=== PATIENT | female | born 2000 ===

== ENCOUNTER 2024-09-08 03:30 | Inpatient (IN) | payer OTHER ==
[2024-09-08] MEDS: LACTATED RINGERS SOLUTION 1,000 ML/1,000 ML INFUS.BAG IV SCH (03:45)
[2024-09-08] MEDS ORDERED: FENTANYL/BUPIVACAINE/NS/PF - PCEA - 50 ML DISP.SYRIN EP ONE (04:02)
[2024-09-08] MEDS: FENTANYL/BUPIVACAINE/NS/PF - PCEA - 50 ML DISP.SYRIN EP SCH (04:25)
[2024-09-08] MEDS ORDERED: NALOXONE HCL 0.4 MG/ML VIAL IVPUSH PRN (04:28)
[2024-09-08 04:39] LABS: ABSOLUTE IMMATURE GRANULOCYTES 0.19 x10^3/uL (0.0-0.031); BASOPHILS # 0.09 x10^3/uL (0.01-0.08); EOSINOPHILS # 0.33 x10^3/uL (0.04-0.36); HEMATOCRIT 32.9 % (34.1-44.9); HEMOGLOBIN 10.3 g/dL (11.2-15.7); MCHC 31.3 g/dl (32.2-35.5); MONOCYTE # 1.24 x10^3/uL (0.24-0.86); MONOCYTE % 7.4 % (4.7-12.5); PLATELET COUNT 210 x10^3/uL (182-369); RDW 14.6 % (12.1-16.5)
[2024-09-08 04:51] LABS: INR 0.97 (0.83-1.09); PROTHROMBIN TIME (PATIENT) 10.6 SEC (9.7-13.0)
[2024-09-08] MEDS: OXYTOCIN 20 UNITS in 0.9% NS 20 UNIT/1,000 ML INFUS.BAG IV SCH (04:52)
[2024-09-08 04:53] LABS: ACTIVATED PTT 23.5 SECONDS (25.2-36.5)
[2024-09-08 04:56] LABS: POTASSIUM 4.1 mmol/L (3.5-5.1)
[2024-09-08 04:59] LABS: BLOOD UREA NITROGEN 8.6 mg/dL (7-18)
[2024-09-08 05:03] LABS: CREATININE 0.6 mg/dL (0.55-1.3)
[2024-09-08] MEDS ORDERED: BENZOCAINE 28 GM HEMORRHOIDAL OINTMENT TP PRN (05:10)
[2024-09-08] MEDS ORDERED: WITCH HAZEL 50% (TUCKS) 40 PAD/JAR PAD TP PRN (05:10)
[2024-09-08] MEDS ORDERED: METHYLERGONOVINE MALEATE 0.2 MG/1 ML AMP IM PRN (05:10)
[2024-09-08] MEDS ORDERED: oxyCODONE HCL 5 MG TABLET PO PRN (05:10)
[2024-09-08] MEDS ORDERED: IBUPROFEN 600 MG TABLET (FP) PO PRN (05:10)
[2024-09-08] MEDS ORDERED: BISACODYL 10 MG SUPP.RECT RC PRN (05:10)
[2024-09-08] MEDS ORDERED: BENZOCAINE 20% 57 GM BOTTLE TP PRN (05:10)
[2024-09-08 05:38] LABS: CORD BASE EXCESS -1.4 mmol/L (0-2); CORD HCO3 23.1 mmHg (20-29); CORD PCO2 38.7 mmHg (30-78); CORD PCO2 45.3 mmHg (30-78); CORD pH 7.305 (7.14-7.44); CORD pH 7.394 (7.14-7.44)
[2024-09-08 05:50] VITALS: BMI 33.8
[2024-09-08] MEDS ORDERED: OXYTOCIN 20 UNITS in 0.9% NS 20 UNIT/1,000 ML INFUS.BAG IV ONE (08:33)
[2024-09-08] MEDS: PRENATAL VITAMINS W/ FOLIC ACID TABLET (FP) PO SCH (09:05)
[2024-09-08] MEDS: ACETAMINOPHEN 325 MG TABLET (FP) PO PRN (09:05)
[2024-09-08] MEDS: FERROUS SO4 325 MG TABLET (FP) PO SCH (09:05)
[2024-09-09 07:09] LABS: BASOPHILS # 0.05 x10^3/uL (0.01-0.08); EOSINOPHIL % 2.6 % (0.7-5.8); EOSINOPHILS # 0.33 x10^3/uL (0.04-0.36); HEMOGLOBIN 9.3 g/dL (11.2-15.7); MEAN CELL VOLUME 77.7 fl (79.4-94.8); MEAN PLT VOLUME 11.6 fl (9.4-12.3); MONOCYTE # 0.82 x10^3/uL (0.24-0.86); MONOCYTE % 6.5 % (4.7-12.5); PLATELET COUNT 167 x10^3/uL (182-369); RDW 14.9 % (12.1-16.5)
[2024-09-09] MEDS ORDERED: SENNOSIDES/DOCUSATE COMBO (SENNA PLUS) TABLET (UD) PO PRN (22:00)
[2024-09-10 10:36] VITALS: BP 111/62; PULSE 50; RESP 17; TEMP 98
== END 2024-09-10 11:35 | disposition home or self-care (01) | DRG 560 ==
LOC: JLDR 03:30 → J3W 08:40
PROVIDERS: ADMIT Obstetrics & Gynecology; ATTEND Obstetrics & Gynecology
PROC: 10E0XZZ Delivery of Products of Conception, External Approach (ICD-10-PCS; principal; 2024-09-08)
DX: O48.0 Post-term pregnancy (principal); Z3A.40 40 weeks gestation of pregnancy; Z37.0 Single live birth
CPT/HCPCS: 36415; 36600; 59409; 80048; 82803; 85025; 85610; 85730; 86780; 86850; 86900; 86901